=== PATIENT | male | born 1990 | race Caucasian/White ===

== ENCOUNTER 2022-10-18 21:14 | Emergency (ER) | payer MEDICAID ==
[~2022-10-18] VITALS: Ht 162.6 cm; Wt 64.4 kg
[2022-10-18 21:30] VITALS: BP 127/73; PULSE 90; RESP 17; TEMP 98.8; O2SAT 98
--- NOTE | 2022-10-18 21:33 | NUR ---
TO LOBBY A/W BED AMBULATORY
[2022-10-18 22:36] LABS: BASOPHILS # (AUTO) 0.1 K/uL (0.00-0.22); BASOPHILS % (AUTO) 0.4 % (0.0-2.0); EOSINOPHILS # (AUTO) 0.2 K/uL (0-0.4); EOSINOPHILS % (AUTO) 0.8 % (0.0-4.0); HEMATOCRIT 43.3 % (36-52); HEMOGLOBIN 15.7 g/dL (12.0-18.0); LYMPHOCYTES # (AUTO) 1.8 K/uL (2.0-11.5); LYMPHOCYTES % (AUTO) 8.4 % (20.5-51.1); MEAN CORPUSCULAR HEMOGLOBIN 31 pg (27-31); MEAN CORPUSCULAR HGB CONC 36 g/dL (33-37); MEAN CORPUSCULAR VOLUME 85.9 fL (80-94); MONOCYTES # (AUTO) 1.2 K/uL (0.8-1.0); MONOCYTES % (AUTO) 5.3 % (1.7-9.3); NEUTROPHILS # (AUTO) 18.4 K/uL (1.8-7.7); NEUTROPHILS % (AUTO) 85.1 % (42.2-75.2); PLATELET COUNT (AUTO) 205 K/uL (140-450); RED BLOOD CELL COUNT(AUTO) 5.04 MIL/uL (4.20-6.10); RED CELL DISTRIBUTION WIDTH 13.1 % (11.6-13.7); WHITE BLOOD COUNT (AUTO) 21.6 K/uL (4.8-10.8)
[2022-10-18 22:38] LABS: APPEARANCE,URINE CLEAR (CLEAR); BILIRUBIN,URINE NEGATIVE (NEGATIVE); BLOOD, URINE NEGATIVE (NEGATIVE); COLOR,URINE YELLOW (YELLOW); LEUKOCYTE ESTERASE ,URINE NEGATIVE (NEGATIVE); NITRITE, URINE NEGATIVE (NEGATIVE); PH,URINE 6.5 (5.0-9.0); UGLUCOSE NEGATIVE (NEGATIVE)
[2022-10-18 22:52] LABS: ALBUMIN 3.8 g/dL (3.4-5.0); ANION GAP 12.5 (8-16); CARBON DIOXIDE 27.4 mmol/L (21-32); CREATININE 0.9 mg/dL (0.6-1.3); POTASSIUM 3.9 mmol/L (3.5-5.1); TOTAL BILIRUBIN 0.7 mg/dL (0.0-1.0)
--- NOTE | 2022-10-18 23:15 | NUR ---
RT FLANK PAIN, NAUSEA, STARTED TODAY, ABSCESS ON HIS LOWER LEFT LEG FOR 3 DAYS
--- NOTE | 2022-10-18 23:16 | NUR ---
PT TO BED #9
--- NOTE | 2022-10-18 23:19 | NUR ---
Makayla molina in ED - 10/19/22 at 0143 by [facility] RT FLANK PAIN, NAUSEA, STARTED TODAY, ABSCESS ON HIS LOWER LEFT LEG FOR 3 DAYS
[2022-10-19] VITALS: TEMP 98.8
--- NOTE | 2022-10-19 00:03 | NUR ---
Dr. Jon examining patient.
[2022-10-19] MEDS ORDERED: MORPHINE SULFATE 4 MG/ML SYR IVP PRN (00:05)
[2022-10-19] MEDS ORDERED: MORPHINE SULFATE 4 MG/ML SYR IVP ONE (00:05)
[2022-10-19] MEDS ORDERED: NACL 0.9% 1,000 ML IV ONE (00:05)
[2022-10-19] MEDS ORDERED: ONDANSETRON 4 MG/2 ML VIAL IVP ONE (00:05)
[2022-10-19] MEDS ORDERED: metroNIDAZOLE 500 MG/NS PREMIX 100 ML IV ONE (00:05)
--- NOTE | 2022-10-19 01:02 | NUR ---
Patient taken to radiology.
[2022-10-19] MEDS ORDERED: ONDANSETRON 4 MG/2 ML VIAL ONE (01:15)
[2022-10-19] MEDS ORDERED: cefTRIAXone 1,000 MG VIAL ONE (01:15)
[2022-10-19 04:31] VITALS: O2SAT 66
[2022-10-19] MEDS ORDERED: ACET-10509 PO (05:20)
[2022-10-19] MEDS ORDERED: IBUP-2213 PO (05:20)
--- NOTE | 2022-10-19 05:40 | NUR ---
Patient discharged with v/s stable. Written and verbal after care instructions given and explained. Patient alert, oriented and verbalized understanding of instructions. Ambulatory with steady gait. All questions addressed prior to discharge. ID band removed. Patient advised to follow up with PMD. Rx of Tylenol and Ibuprofen given. Patient educated on indication of medication including possible reaction and side effects. Opportunity to ask questions provided and answered.
[2022-10-19 05:48] VITALS: BP 92/49; PULSE 72; RESP 18
== END 2022-10-19 05:40 | disposition home or self-care (01) ==
LOC: MED 21:14
DX: R10.31 Right lower quadrant pain (principal)
CPT/HCPCS: 36415; 74176; 80053; 81003; 83605; 83690; 85025; 87040; 96365; 96367; 96375; 99285; J0696; J2270; J2405; J3490; J7030